=== PATIENT | female | born 1940 | race Caucasian/White ===

== ENCOUNTER 2020-05-13 17:15 | Emergency (ER) | payer OTHER, MEDICARE ==
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
[2020-05-13 17:28] VITALS: BP 160/70
[2020-05-13 17:45] VITALS: PULSE 77
== END 2020-05-13 18:15 | disposition home or self-care (01) ==
LOC: CC.ED 17:15
DX: S80.11XA Contusion of right lower leg, initial encounter (principal); S90.511A Abrasion, right ankle, initial encounter; E11.9 Type 2 diabetes mellitus without complications; Z79.4 Long term (current) use of insulin; Z79.82 Long term (current) use of aspirin; Z79.899 Other long term (current) drug therapy; W01.0XXA Fall on same level from slipping, tripping and stumbling without subsequent striking against object, initial encounter; Y92.413 State road as the place of occurrence of the external cause
CPT/HCPCS: 73590-RT; 99283; 99283-25